=== PATIENT | female | born 1980 | race Caucasian/White ===

== ENCOUNTER 2021-09-25 12:59 | Emergency (ER) | payer OTHER ==
[~2021-09-25 12:59] MED LIST: METHADONE10 MG PO; NAPROXEN500 MG PO; SYNTHROID25 MCG PO
[2021-09-25] MEDS ORDERED: CYCLOBENZAPRINE10 MG PO (15:17)
[2021-09-25] MEDS ORDERED: PREDNISONE 20MG20 MG PO (15:17)
== END 2021-09-25 15:25 | disposition home or self-care (01) ==
LOC: FER 12:59
DX: M54.31 Sciatica, right side (principal); I10 Essential (primary) hypertension; F17.210 Nicotine dependence, cigarettes, uncomplicated; Z98.890 Other specified postprocedural states; Z90.49 Acquired absence of other specified parts of digestive tract; Z88.1 Allergy status to other antibiotic agents; Z79.899 Other long term (current) drug therapy
CPT/HCPCS: 72100; 73502; J1885

== ENCOUNTER 2021-09-26 09:10 | Emergency (ER) | payer OTHER ==
[~2021-09-26 09:10] MED LIST changes: +CYCLOBENZAPRINE10 MG PO; +PREDNISONE 20MG20 MG PO
== END 2021-09-26 10:28 | disposition other institution (70) ==
LOC: FER 09:10
DX: I63.232 Cerebral infarction due to unspecified occlusion or stenosis of left carotid arteries (principal); I63.512 Cerebral infarction due to unspecified occlusion or stenosis of left middle cerebral artery; I10 Essential (primary) hypertension; Z79.899 Other long term (current) drug therapy
CPT/HCPCS: 70450; 70551; J7030; Q9967